=== PATIENT | male | born 1970 | race Caucasian/White ===

== ENCOUNTER → 2018-04-10 | Outpatient (CLI) | payer OTHER | LOC: LABPAT 10:47 | PROVIDERS: ATTEND Orthopaedic Surgery | DX: Z01.812 Encounter for preprocedural laboratory examination (principal) | CPT/HCPCS: 87070 ==

== ENCOUNTER → 2018-04-11 | Outpatient (CLI) | payer OTHER | END | disposition home or self-care (01) | LOC: LABPAT 07:28 | PROVIDERS: ATTEND Orthopaedic Surgery | DX: Z01.812 Encounter for preprocedural laboratory examination (principal); M16.11 Unilateral primary osteoarthritis, right hip | CPT/HCPCS: 36415; 86850; 86900; 86901 ==

== ENCOUNTER 2018-04-17 05:44 | Inpatient (IN) | payer OTHER ==
[2018-04-10 11:34] VITALS: BMI 23.7
--- NOTE | 2018-04-16 18:05 | HP ---
HISTORY AND PHYSICAL SURGERY: 04/17/2018 Gilson Higuera is a 47-year-old patient seen with symptomatic right hip osteoarthritis. After having treatment options discussed, he elected to proceed with right total hip arthroplasty. Consent was obtained regarding the procedure. Medical clearance was obtained by Dr. Yfn Mauro. PAST MEDICAL HISTORY: Hyperlipidemia, gastroesophageal reflux disease. PAST SURGICAL HISTORY: Cholecystectomy. DAILY MEDICATIONS: None. ALLERGIES: None reported. SOCIAL HISTORY: Patient denies current tobacco use. PHYSICAL EXAMINATION: Evaluation of the right hip: He has very limited range of motion with pain. Positive impingement sign. Straight leg raise negative. Distal neurovascular exam is intact. RADIOGRAPHS: Radiographs of the right hip reveal severe osteoarthritic changes. IMPRESSION: 1. Right hip osteoarthritis. 2. Hyperlipidemia. 3. Gastroesophageal reflux disease. PLAN: Direct anterior right total hip arthroplasty. MMODL / IJN: [id number] /
[~2018-04-17 05:44] MED LIST: ACETAMINOPHEN TAB 500 MG TAB PO ONE; DEXAMETHASONE SOD PHOSPHATE 10 MG/ML 1 ML VIAL IV ONE; LIDOCAINE 1% 20 ML VIAL (10MG/ML) FOR IV START INTRADERMA PRN; MELOXICAM 7.5 MG TAB PO ONE; MIDAZOLAM 2 MG/2 ML VIAL IV PRN; ONDANSETRON 4 MG/2 ML VIAL IVP ONE; TRANEXAMIC ACID 1,000 MG in SODIUM CHLORIDE 0.9% 50 ML IVPB ONE; ceFAZolin IN SWFI 2 GM/20 ML SYRINGE IVP ONE; fentaNYL (PF) 50 MCG/ML 2 ML AMP IV PRN
[2018-04-17] MEDS ORDERED: ONDANSETRON 4 MG/2 ML VIAL IVP ONE (06:30)
[2018-04-17] MEDS: LACTATED RINGERS 1,000 ML IV SCH ×6 (06:30→21:04)
[2018-04-17] MEDS ORDERED: DEXAMETHASONE SOD PHOSPHATE 10 MG/ML 1 ML VIAL IV ONE (06:30)
[2018-04-17] MEDS ORDERED: ROPIVACAINE 246.25 MG, EPINEPHrine 0.5 MG, KETOROLAC 30 MG, cloNIDine HCL/PF 80 MCG, WA... MISCELLANE ONE ×5 (07:04)
[2018-04-17] MEDS ORDERED: ceFAZolin 3,000 MG in SODIUM CHLORIDE 0.9% IRRIGATIO 3,000 ML IRRIGATION ONE (07:46)
[2018-04-17] MEDS ORDERED: LACTATED RINGERS 1,000 ML IV ONE (08:53)
[2018-04-17] MEDS ORDERED: HYDROmorphone 1 MG/ML 1 ML SYRINGE IVP PRN ×3 (08:54)
[2018-04-17] MEDS ORDERED: traMADol 50 MG TAB PO PRN (08:54)
[2018-04-17] MEDS ORDERED: ONDANSETRON 4 MG/2 ML VIAL IVP PRN (08:54)
[2018-04-17] MEDS ORDERED: NALOXONE 0.4 MG/ML 1 ML VIAL IV PRN (08:54)
[2018-04-17] MEDS ORDERED: HYDROcodone/APAP 7.5-325MG 1 EACH TAB PO PRN (08:54)
[2018-04-17] MEDS ORDERED: hydrOXYzine PAMOATE 25 MG CAP PO PRN (08:54)
--- NOTE | 2018-04-17 08:54 | P.OP ---
Date of Procedure: 04/17/18 Preoperative Diagnosis: Right hip osteoarthritis Postoperative Diagnosis: Right hip osteoarthritis Procedure(s) Performed: Direct anterior right total hip arthroplasty Implants: 1. Depuy Actis Duafix press-fit femoral stem size 5 high collar 2. Depuy pinnacle acetabular shell press-fit 60 mm 3. Depuy Zebulon poly-acetabular liner neutral 36 mm ID 60 mm OD 4. Biolox delta ceramic femoral head +8.5 36 mm Anesthesia: local, spinal Surgeon: Juan Prescott [employer] Dispatcher #1: Hua Michel Estimated Blood Loss (ml): 150 Pathology: other (Femoral head) Condition: stable Disposition: PACU Indications for Procedure: 47-year-old patient seen with some to mimic right hip osteoarthritis. After having treatment options discussed, he elected to proceed with total hip arthroplasty. Operative Findings: see description of procedure Description of Procedure: The patient was taken to the operative suite. Patient underwent a spinal anesthetic by the department of anesthesia. Patient was then transferred to the [place] table. Patient was given preoperative IV antibiotics and TXA. Both lower extremities were placed in standard leg spars. The hip was then prepped and draped in the normal sterile orthopedic fashion. A standard anterior incision was made beginning 3 cm lateral and 1 cm distal to the ASIS extending 10 cm. Dissection was then carried down through the subcutaneous soft tissues down to the fascia overlying the tensor fascia zhao. An incision was now made through the fascia. Careful dissection was taken down exposing the tensor fascia zhao muscle. A Cobra retractor was now placed along the medial femoral neck and a second one along the lateral femoral neck. The venous circumflex vessels were now identified, cauterized and clipped. We identified the anterior hip capsule. An incision was made through the hip capsule along the lateral border. I performed a partial anterior capsulectomy. Retractors were now placed around the femoral neck itself. A femoral neck cut was now made with a sagittal saw. It was completed with an osteotome at the lateral neck area. The femoral head was now removed without difficulty. The extremity was now rotated to 45 of external rotation. It was locked in position. Residual labrum was now debrided out. Serial reaming was performed of the acetabulum while Allan COCHRAN assisted holding an anterior retractor for exposure. Once we reached the appropriate size and a trial was position and fit nicely. The appropriate size was now chosen opened and made available. It was introduced into the acetabulum without difficulty. The C-arm/fluoroscopy was now brought into the operative field. We made sure we had a true AP pelvic view. We now under direct C-arm/fluoroscopy introduced into the acetabular component with appropriate version and inclination. I held the cup in appropriate position well Allan COCHRAN used a mallet to seat the acetabular component. I noted the component now to be well seated and stable. Acetabular cup introduce her was removed. The C-arm was pulled back. An appropriate liner was introduced and clicked into position. It was felt to be stable. At this point retractors were removed. The extremity was now placed into 120 external rotation with no traction. The leg was now dropped to the ground and adducted. Appropriate retractors were now positioned along the proximal femur. We also placed our femoral look into position. Additional capsular releasing was performed to gain access to the proximal femur. We now used a box osteotome. A canal finder was now utilized. Serial broaching was now performed with the assistance of Allan COCHRAN tapping the broaches down with a mallet while held the broach in appropriate rotation and position. This was done until we reached the appropriate size with good overall rotational stability. Appropriate calcar planing was performed. A trial head/neck was placed into position. The hip was now reduced. The C-arm/fluoroscopy was brought back into the operative field. A spot film was obtained of the nonoperative hip. A spot film was obtained of the trial components. Overlays were performed, we noted good overall alignment and positioning for determining leg length. The C- arm/fluoroscopy was pulled back. Retractors were repositioned and the hip was dislocated. The leg was again taken down to the ground and adducted. Appropriate retractors were repositioned as well as the femoral hook. All trial components were removed. The femoral implant was opened along with the femoral head. The femoral implant was introduced on the appropriate handle into our pre-broached area. I held the component position well Allan COCHRAN used a mallet to seat the femoral component. The femoral component was now noted to be well seated and stable.. The femoral head was introduced with good positioning and fixation noted. Retractors were now removed. The hip was now reduced. There appeared be good positioning of the hip confirmed on intraoperative fluoroscopy. Spot films were obtained to document this. A second gram of TXA was given. The deep and superficial soft tissues were infiltrated with local analgesic. Bipolar cautery had been utilized intermittently through the procedure for hemostasis. The wound was irrigated copiously with pulse lavage mechanical irrigation. The fascia was repaired with Vicryl suture. The subcutaneous soft tissues were repaired in layers with Vicryl suture. The skin was approximated with pernio/Dermabond. Sterile dressings were applied. Patient was then awakened, transferred to a bed and taken to recovery in stable condition. Allan COCHRAN assisted with the complex procedure.
--- NOTE | 2018-04-17 09:57 | XR ---
Fluoroscopy INDICATION: Pain FINDINGS: Fluoroscopy time: 11 seconds. Images obtained: 1. IMPRESSIONS: 1. Documentation of fluoroscopy.
[2018-04-17] MEDS: FAMOTIDINE 20 MG TAB PO SCH (10:13)
[2018-04-17] MEDS: MELOXICAM 7.5 MG TAB PO SCH (10:13)
[2018-04-17] MEDS: HYDROcodone/APAP 7.5-325MG 1 EACH TAB PO PRN ×2 (10:23→21:10)
[2018-04-17] MEDS: ceFAZolin IN SWFI 2 GM/20 ML SYRINGE IVP SCH (17:29)
[2018-04-17] MEDS ORDERED: SENNOSIDES-DOCUSATE SODIUM 1 EACH TAB PO SCH (21:00)
--- NOTE | 2018-04-17 21:05 | CONS ---
CONSULTATION DATE OF SERVICE: 04/17/2018. REASON FOR CONSULTATION: Medical management requested by Dr. Prescott. CONSULTATIONS: A very pleasant 47-year-old patient of Dr. Mauro. The patient has undergone right total hip arthroplasty. Post procedure some pain is present. No nausea, vomiting. No dizziness or lightheadedness. Sitting up on a chair. The patient over a period of time had been having progressive pain in the right hip with very slight in the joints. The is question if the patient's limb was a bit short. The patient is very extremely active and plays multiple sports including running marathons that may have culminated in his arthritis. Symptoms are not controlled with medications. Hence he was admitted for the same. The patient had melanoma surgery was done for the same. Has GERD, hyperlipidemia, controlled. REVIEW OF SYSTEMS: CONSTITUTIONAL: None. HEENT: None. RESPIRATORY: None. GASTROINTESTINAL heartburn. GENITOURINARY: None. MUSCULOSKELETAL: Pain in the right hip. Slightly in other joints. DERMATOLOGICAL, HEMATOLOGIC, LYMPHATICS: none. PSYCHIATRY none. NEUROLOGICAL: None. PAST MEDICAL HISTORY: GERD, hyperlipidemia, melanoma surgically removed. PAST SURGICAL HISTORY: Cholecystectomy, melanoma repair, repair of torn diaphragm. SOCIAL HISTORY: The patient drinks 2-3 glasses of wine a day. 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 Does not smoke. FAMILY HISTORY: Myocardial infarction. HOME MEDICATIONS: 1. Zocor 5 mg a day. 2. Motrin 400 mg b.i.d. p.r.n. 3. Prilosec 40 mg with breakfast. 4. Multivitamin 1 tablet p.o. daily. ALLERGIES: None. PHYSICAL EXAMINATION: VITAL SIGNS: Temperature 97.9, pulse 72, respiration 12, blood pressure 146/65, pulse ox 96% on room air. GENERAL APPEARANCE: Average built, sitting up in a chair. Comfortable. EYES: Pupils equal. Conjunctivae normal. HEENT: External appearance of nose and ears normal. Oral cavity normal. NECK: JVD not raised. Mass not palpable. RESPIRATORY: Effort normal. LUNGS are clear. CARDIOVASCULAR: 1st and 2nd sounds normal. No edema. ABDOMEN: Soft, nontender. Liver and spleen not palpable. LYMPHATICS: No lymph nodes palpable in the neck or axilla. PSYCHIATRY: Alert and oriented x3. Mood and affect normal. NEUROLOGICAL: Pupils equal. Cranial nerves grossly intact. Power and sensation grossly intact. MUSCULOSKELETAL: Dressing on the right hip. INVESTIGATIONS: No blood work. ASSESSMENT: 1. Right total hip arthroplasty. 2. Hyperlipidemia. 3. Gastroesophageal reflux disease. PLAN: The patient's pain control is in place. Getting calcium for DVT prophylaxis 325 twice a day, getting IV fluids, Venodyne boots. Care was discussed with the patient. Questions were answered. Thank you Dr. Prescott. Copy to Dr. Mauro. MMMANAVL / BATSHEVAN: [id number] /
[2018-04-17] MEDS: ASPIRIN 325 MG TAB PO SCH (21:10)
[2018-04-18] MEDS: ceFAZolin IN SWFI 2 GM/20 ML SYRINGE IVP SCH (00:02)
[2018-04-18] MEDS: LACTATED RINGERS 1,000 ML IV SCH ×2 (05:17→07:27)
[2018-04-18 07:13] LABS: Basophils % (A) 0 %; Eosinophils # (A) 0.1 k/uL (0-0.7); Eosinophils % (A) 1 %; HCT 36.6 % (39.0-53.0); Lymphocytes # (A) 2.5 k/uL (1.0-4.8); Lymphocytes % (A) 25 %; MCH 30.2 pg (25.0-35.0); MCHC 32.8 g/dL (31.0-37.0); MCV 92.1 fL (80.0-100.0); Mean Platelet Volume 6.5; Monocytes # (A) 1.2 k/uL (0-1.0); Monocytes % (A) 11 %; Neutrophils # (A) 6.1 k/uL (1.3-7.7); Neutrophils % (A) 60 %; Platelet Count 348 k/uL (150-450); RBC 3.97 m/uL (4.30-5.90); RDW 12.9 % (11.5-15.5); WBC 10.2 k/uL (3.8-10.6)
[2018-04-18] MEDS: ASPIRIN 325 MG TAB PO SCH (07:26)
[2018-04-18] MEDS: MELOXICAM 7.5 MG TAB PO SCH (07:27)
[2018-04-18] MEDS: FAMOTIDINE 20 MG TAB PO SCH (07:27)
[2018-04-18] MEDS ORDERED: PANTOPRAZOLE 40 MG TABLET PO SCH (07:30)
[2018-04-18 08:20] VITALS: BP 113/61; PULSE 84; RESP 14; TEMP 97.4
[2018-04-18] MEDS ORDERED: ATORVASTATIN 10 MG TAB PO SCH (09:00)
--- NOTE | 2018-04-18 13:05 | P.PN ---
Subjective Progress Note Date: 04/18/18 Principal diagnosis: Status post right total hip arthroplasty Patient seen today resting in his hospital bed, his is present at bedside. Patient is comfortable, no acute pain. He's ambulate well with therapy. He is urinating on his own. Denies any chest pain shortness of breath. Objective - Vital Signs Vital signs: Vital Signs Temp 97.4 F L 04/18/18 08:19 Pulse 84 04/18/18 08:19 Resp 14 04/18/18 08:19 BP 113/61 04/18/18 08:19 Pulse Ox 94 L 04/18/18 08:19 Intake & Output 04/17/18 04/18/18 04/18/18 18:59 06:59 18:59 Intake Total 2301 790 560 Output Total 150 Balance 2151 790 560 Weight 79.379 kg Intake: IV 1501 Intake, IV Titration 800 200 Amount Lactated Ringers 1,000 ml 800 200 @ 100 mls/hr IV .Q10H MIGUEL A Rx#:[id number] Oral 590 560 Output: Estimated Blood Loss 150 Other: Voiding Method Toilet Toilet # Voids 800 2 1 - Exam Right lower extremity: Incision is clean, dry, and intact. The prineo tape is in good condition. There is minimal soft tissue swelling and ecchymosis surrounding the medial and lateral aspects of the incision. Calf is soft, no tenderness with palpation. Plantar flexion, dorsiflexion, EHL, FHL are intact. Sensory exam to light touch throughout the extremity is intact, dorsal pedis pulses 2+. - Labs CBC & Chem 7: 04/18/18 06:40 Labs: Abnormal Lab Results - Last 24 Hours (Table) 04/18/18 Range/Units 06:40 RBC 3.97 L (4.30-5.90) m/uL Hgb 12.0 L (13.0-17.5) gm/dL Hct 36.6 L (39.0-53.0) % Monocytes # 1.2 H (0-1.0) k/uL Assessment and Plan Plan: Assessment: Postop day 1 status post right total hip arthroplasty Plan: Pain control, discharge home on oral medication GI and DVT prophylaxis, aspirin 81 mg twice a day Wound care instructions discussed Home physical therapy and nursing after discharge Medical recommendations Discharge planning: Patient will be discharged home today Time with Patient: Less than 30
--- NOTE | 2018-04-18 13:10 | P.DS ---
Providers Date of admission: 04/17/18 05:44 Expected date of discharge: 04/18/18 Attending physician: Juan Prescott Consults: 04/17/18 08:54 Consult Physician Routine Consulting Provider: Todd Mauro Consult Reason/Comments: Medical management Do you want consulting provider notified?: Yes 04/17/18 09:05 Consult Physician Routine Consulting Provider: Joel Vega Consult Reason/Comments: Medical Management Do you want consulting provider notified?: Yes Primary care physician: Todd Mauro [facility] Course: Date of admission: 04/17/2018 Date of discharge: 04/18/2018 Admission diagnosis: Right total hip arthroplasty Discharge diagnosis: Same Attending physician: Dr. Prescott Surgical procedures: Right total hip arthroplasty Brief history: Patient is a 47-year-old male with a history of progressive primary right hip osteoarthritis. At this point patient has failed conservative treatment measures and has opted to proceed with a elective right total hip arthroplasty. Hospital course: Details of patient's surgery can be found in operative report. Patient tolerated the procedure well and was subsequently transported to orthopedic floor. Patient's orthopeidc and medical care was provided daily. Patient had daily laboratory tests performed for evaluation of overall blood counts. Patient had daily physical therapy to include strengthening range of motion as well as education with walker ambulation. Patient was treated with Lovenox for their postoperative DVT prophylaxis during their inpatient stay. Patient was noted to have a relatively uneventful postoperative course. Patient reported satisfactory pain control with oral pain medications by postoperative day 0. Patient showed satisfactory progress with physical therapy. Patient moved steadily through the program and had no difficulty meeting the goals by postoperative day 1. Given patient's otherwise satisfactory course and having met physical therapy goals, plan is to discharge patient home on postoperative day 1. Discharge condition/disposition: Patient will be discharged home in stable condition. Discharge medications: Instructions are given on resumption of patient's normal daily medications per primary care recommendation, in addition patient will be prescribed [place] 7.5 mg/325 mg, tramadol 50 mg, Colace 100 mg, aspirin 81 mg. Discharge instructions: 1. Wound care and infection precautions, keep incision dry and covered while showering, no lotions, creams, moisturizers. No soaking, tubs, pools, hottubs. Do not scrub over the incision. 2. Weight-bear as tolerated with walker / cane until follow-up. 3. Ice and elevate when necessary. Do not exceed 20 minutes per hour with ice pack. 4. Utilize compression sleeve until seen at first follow up appointment. 5. Visiting nursing care. 6. Home physical therapy. 7. Pain meds and anticoagulants per prescription. 8. Pain medication has potential to cause constipation. Increase oral fluid and fiber intake. Contact primary care provider if you have not had a bowel movement within 48 hours after discharge 9. No anti-inflammatory medication until discussed at first post operative visit, this including Motrin, Aleve, Mobic, Diclofenac. 10. Follow up in office at 2 weeks postop with Allan Michel PA-C 11. Follow up with your primary care doctor 7-10 days after discharge. 12. Contact [facility] with any questions, . Procedures: Right total hip arthroplasty Patient Condition at Discharge: Good Plan - Discharge Summary Discharge Rx Participant: Yes New Discharge Prescriptions: New Aspirin [Adult Low Dose Aspirin EC] 81 mg PO BID #60 tablet. Docradhate [Colace] 100 mg PO DAILY #30 capsule HYDROcodone/APAP 7.5-325MG [[place] 7.5] 1 each PO Q6HR PRN #28 tab PRN Reason: Pain traMADol HCl [Ultram] 50 mg PO Q6H PRN #28 tab PRN Reason: Pain No Action Omeprazole [PriLOSEC] 40 mg PO AC-BRKFST Multivitamins, Thera [Theragran] 1 each PO DAILY Simvastatin [Zocor] 5 mg PO DAILY Ibuprofen [Motrin Ib] 400 - 800 mg PO BID PRN PRN Reason: Pain Discharge Medication List Multivitamins, Thera [Theragran] 1 each PO DAILY 05/14/15 [History] Omeprazole [PriLOSEC] 40 mg PO AC-BRKFST 05/14/15 [History] Simvastatin [Zocor] 5 mg PO DAILY 05/14/15 [History] Ibuprofen [Motrin Ib] 400 - 800 mg PO BID PRN 04/10/18 [History] Aspirin [Adult Low Dose Aspirin EC] 81 mg PO BID #60 tablet. 04/18/18 [Rx] Docusate [Colace] 100 mg PO DAILY #30 capsule 04/18/18 [Rx] HYDROcodone/APAP 7.5-325MG [[place] 7.5] 1 each PO Q6HR PRN #28 tab 04/18/18 [Rx] traMADol HCl [Ultram] 50 mg PO Q6H PRN #28 tab 04/18/18 [Rx] Follow up Appointment(s)/Referral(s): Todd Mauro DO [Primary Care Provider] - 1 Week (office will call with appointment time) [facility], [NON-STAFF] - Hua Michel PAC [PHYSICIAN RUBBER [employer] SUPERVISOR] - 05/03/18 1:50 pm Activity/Diet/Wound Care/Special Instructions: Orthopedic Discharge Instructions: 1. Wound care and infection precautions, keep incision dry and covered while showering, no lotions, creams, moisturizers. No soaking, pools, hot tubs. Do not scrub over incision. 2. Weight-bear as tolerated with walker / cane until follow-up. 3. Ice and elevate when necessary. Do not exceed 20 minutes per hour with ice pack. 4. Utilize compression sleeve until seen at first follow up appointment. 5. Pain meds and anticoagulants per prescription. 6. Pain medication has potential to cause constipation. Increase oral fluid and fiber intake. Contact primary care provider if you have not had a bowel movement within 48 hours after discharge. 7. No anti-inflammatory medication until discussed at first post operative visit, this including Motrin, Aleve, Mobic, Diclofenac. 8. Follow up in office at 2 weeks postop with Allan Michel PA-C 9. Follow up with your primary care doctor 7-10 days after discharge. 10. Contact [facility] with any questions, . Discharge Disposition: HOME WITH HOME HEALTH SERVICES
--- NOTE | 2018-04-18 16:28 | PN ---
PROGRESS NOTE DATE OF SERVICE: April 18, 2018 PRESENTING COMPLAINT: Hip surgery. INTERVAL HISTORY: Patient is status post hip surgery. Did sleep well. Some pain in the operative site. No nausea, vomiting. Did work with therapy. No chest pain or short of breath. Did tolerate his meals. is present. Otherwise doing well. REVIEW OF SYSTEMS: Done for constitutional, cardiovascular, GI, pulmonary, musculoskeletal and relevant findings as above. CURRENT MEDICATIONS: Reviewed. PHYSICAL EXAMINATION: VITAL SIGNS: Temperature 97.4, pulse 84, respiration 14, blood pressure 113/61 pulse ox 94 percent on room air. GENERAL APPEARANCE: Sitting up in a chair, comfortable. EYES: Pupils are equal. Conjunctivae normal. HEENT: External appearance of nose and ears normal. Oral cavity normal. NECK: JVD not raised. Mass not palpable. RESPIRATORY: Effort normal. LUNGS are clear. CARDIOVASCULAR: 1st and 2nd sounds normal. No edema. ABDOMEN: Soft, nontender. Liver and spleen not palpable. PSYCHIATRY: Alert and oriented x3. Mood and affect normal. INVESTIGATIONS: White count 10.2, hemoglobin 12. ASSESSMENT: 1. Right total hip arthroplasty. 2. Hyperlipidemia. 3. Gastroesophageal reflux disease. PLAN: Patient doing well. Continue current medication and treatment plan. Should follow with his family doctor. MMODL / IJN: [id number] /
== END 2018-04-18 14:40 | disposition home health service (06) | DRG 470 ==
LOC: 2ORMAIN 05:44 → 4SSUR 08:50
PROVIDERS: ADMIT Orthopaedic Surgery; ATTEND Orthopaedic Surgery
PROC: 0SR904A Replacement of Right Hip Joint with Ceramic on Polyethylene Synthetic Substitute, Uncemented, Open Approach (ICD-10-PCS; principal; 2018-04-17 07:00)
DX: M16.11 Unilateral primary osteoarthritis, right hip (principal); Z85.820 Personal history of malignant melanoma of skin; E78.5 Hyperlipidemia, unspecified; K21.9 Gastro-esophageal reflux disease without esophagitis; Z79.899 Other long term (current) drug therapy; Z82.49 Family history of ischemic heart disease and other diseases of the circulatory system; Z90.49 Acquired absence of other specified parts of digestive tract; Z79.1 Long term (current) use of non-steroidal anti-inflammatories (NSAID)
CPT/HCPCS: 36415; 73501; 85025; 86850; 86900; 86901; 88300

== ENCOUNTER 2020-04-11 09:55 | Day surgery (SDC) | payer BC, OTHER ==
[2020-04-09 14:18] VITALS: BMI 23.7
[~2020-04-11 09:55] MED LIST changes: -ACETAMINOPHEN TAB 500 MG TAB PO ONE; -DEXAMETHASONE SOD PHOSPHATE 10 MG/ML 1 ML VIAL IV ONE; +LACTATED RINGERS 1,000 ML IV SCH; -LIDOCAINE 1% 20 ML VIAL (10MG/ML) FOR IV START INTRADERMA PRN; -MELOXICAM 7.5 MG TAB PO ONE; -MIDAZOLAM 2 MG/2 ML VIAL IV PRN; -ONDANSETRON 4 MG/2 ML VIAL IVP ONE; -TRANEXAMIC ACID 1,000 MG in SODIUM CHLORIDE 0.9% 50 ML IVPB ONE; -ceFAZolin IN SWFI 2 GM/20 ML SYRINGE IVP ONE; -fentaNYL (PF) 50 MCG/ML 2 ML AMP IV PRN
[2020-04-11 10:35] VITALS: TEMP 97.9
[2020-04-11] MEDS ORDERED: PROPOFOL 10 MG/ML 20 ML VIAL IV ONE (11:13)
--- NOTE | 2020-04-11 11:28 | P.PCN ---
Date of Procedure: 04/11/20 Procedure(s) Performed: BRIEF HISTORY: Patient is a 49-year-old pleasant white male scheduled for an elective colonoscopy as a part of screening for colorectal neoplasia. His family history of colon cancer diagnosed and grandfather at age 52. PROCEDURE PERFORMED: Colonoscopy. PREOPERATIVE DIAGNOSIS: Screening for colon cancer. IV sedation per Anesthesia. PROCEDURE: After informed consent was obtained, the patient, was brought into the endoscopy unit. IV sedation was administered by Anesthesia under continuous monitoring. Digital rectal examination was normal. Initially the Olympus CF-160 flexible video colonoscope was then inserted in the rectum, gradually advanced into the cecum without any difficulty. Careful examination was performed as the scope was gradually being withdrawn. Ileocecal valve and the appendiceal orifice were visualized and appeared normal. Prep was excellent. Mucosa of the cecum, ascending colon, transverse colon, descending colon, sigmoid colon, and rectum appeared normal. Retroflexion was performed in the rectum and no lesions were seen. The patient tolerated the procedure well. IMPRESSION: Normal-appearing colon from rectum to cecum with no evidence of colorectal neoplasia . RECOMMENDATIONS: Findings of this examination were discussed with the patient as well as his family. He was advised to have a repeat screening colonoscopy in 5 years because of the family history of colon cancer.
[2020-04-11 11:32] VITALS: RESP 16
[2020-04-11 11:55] VITALS: BP 127/80; PULSE 74
== END 2020-04-11 12:03 | disposition home or self-care (01) ==
LOC: ORWHC2ENDO 09:55
PROVIDERS: ATTEND Internal Medicine Gastroenterology
DX: Z12.11 Encounter for screening for malignant neoplasm of colon (principal); E78.5 Hyperlipidemia, unspecified; K21.9 Gastro-esophageal reflux disease without esophagitis; Z79.899 Other long term (current) drug therapy; Z80.0 Family history of malignant neoplasm of digestive organs
CPT/HCPCS: J2704; G0105; 45378